=== PATIENT | male | born 1980 | race Caucasian/White ===

== ENCOUNTER 2018-04-05 03:33 | Emergency (ER) | payer SELFPAY ==
[2018-04-05] MEDS: LIDOCAINE/EPI/TETRACAINE TOPICAL GEL 3 ML. TP (04:18)
== END 2018-04-05 05:03 | disposition home or self-care (01) ==
LOC: ER 03:33
DX: S01.01XA Laceration without foreign body of scalp, initial encounter (principal); F10.129 Alcohol abuse with intoxication, unspecified; G89.29 Other chronic pain; Z88.1 Allergy status to other antibiotic agents; Y90.9 Presence of alcohol in blood, level not specified; W25.XXXA Contact with sharp glass, initial encounter; Y93.89 Activity, other specified; Y92.89 Other specified places as the place of occurrence of the external cause; Y99.8 Other external cause status
CPT/HCPCS: 12001; 99283